=== PATIENT | female | born 1945 | race Caucasian/White ===

== ENCOUNTER 2020-12-04 22:39 | Emergency (ER) | payer MEDICARE, SELFPAY ==
[2020-12-04 22:40] VITALS: BP 223/102; PULSE 87; RESP 16; TEMP 36.1; O2SAT 98; BMI 38.2
[2020-12-04 22:50] VITALS: BP 237/92
--- NOTE | 2020-12-04 23:05 | EX.ED.UPPERE ---
HPI History of Present Illness Chief Complaint: Upper Extremity Injury Informant: patient Occured/Mechanism Mechanism/Context: Yes fall and Yes same level fall Narrative Narrative: Patient is a 75-year-old female presenting from home after mechanical fall. Patient tripped over her suitcase when she was trying to use the restroom and she fell on her right arm. She is right-hand dominant. She had immediate pain. She had her place her in a homemade sling. She came right to the emergency room. She denies associated numbness or tingling. She not hit her head. She denies any loss of consciousness. She is not on any anticoagulation. No other complaints or injuries reported at this time. PFSH PFSH no medical history Home Medications hydrocodone-acetaminophen 1 tab PO Q6H PRN 3 Days #12 tab 12/05/20 [Rx Last Taken Unknown] Allergy/AdvReac Type Severity Reaction Status Date / Time strawberry Allergy Hives Verified 12/04/20 22:42 no significant family history Surgical History History of cholecystectomy Social History Smoking Status: Never smoker ROS ROS ED Constitutional Constitutional ED: Reports frequent falls; Denies fever(s) Eyes Eyes: Denies change in vision or eye pain ENT ENT ED: Denies dental pain, mouth lesions or nasal trauma Cardiovascular Cardiovascular: Denies chest pain or syncope Respiratory/Chest Respiratory/Chest: Denies cough or dyspnea Gastrointestinal Gastrointestinal: Denies abdominal pain or nausea Genitourinary Genitourinary ED: Denies dysuria or hematuria Musculoskeletal Musculoskeletal: Reports other Details: Right arm pain ; Denies back pain or myalgias Integumentary Denies Abrasions or wounds Neurologic Neurologic: Denies headache(s), paresthesias or weakness Psychiatric Psychiatric: Denies anxiety or depression Hematologic/Lymphatic Hematologic/Lymphatic: Denies easy bleeding or easy bruising EXAM Physical Exam Const Vital Signs: 12/04/20 22:40 12/04/20 22:50 Temperature 97 F L Temperature Source Temporal Pulse Rate 87 Respiratory Rate 16 Blood Pressure 223/102 H 237/92 H Blood Pressure Mean 142 140 Pulse Ox 98 Oxygen Delivery Method Room Air Positive well nourished and well developed General Appearance ED: well developed HEENT Reports head/scalp atraumatic and hearing grossly normal bilaterally normocephalic and atraumatic; Negative for Pacheco's sign, raccoon eyes or scalp tenderness Nose: no nasal discharge Mouth ED: Yes other Mouth: other Other Details: No Malocclusion Eyes PERRL Neck full ROM Thyroid: Negative for tender Chest Wall inspection of chest normal and palpation of chest normal Chest: Negative for crepitus Resp normal respiratory effort, no retractions and clear to auscultation bilaterally Cardio regular rate and regular rhythm Jugular Venous Distention: Negative for JVD Peripheral Pulses: pulses 2+ throughout GI non-tender and non-distended Palpation: soft; Negative for guarding or rebound tenderness present Back/Spine Cervical Spine: Negative for cervical spine tenderness Extremity Extremity Narrative: Patient is holding her right arm flexed at the elbow. She has tenderness palpation at the radial head and distal humerus. Pain with supination pronation of the forearm as well as flexion extension of the elbow. No obvious deformity appreciated. No tenderness or deformity of the wrist. No tenderness to palpation of the shoulder. Clavicle is nontender with no deformity. Right Upper Extremity: clavicle Neuro oriented x3, moves all extremities and no sensory deficits noted Sensorium / Orientation: alert Motor Exam: strength 5/5 throughout Psych mental status grossly normal Skin no wounds Trauma: Negative for abrasion MDM MDM MDM Narrative Medical decision making narrative: Patient mechanical fall. She has pain of the right upper arm. No obvious deformity. She is neurovascularly intact. She is given IM morphine in the ER. She does have mild improvement of her symptoms. X-ray shows a right proximal humerus fracture. X-ray interpreted by myself as well as radiology. Patient will be given follow-up with Dr. Huynh, orthopedics and placed in a sling. She is counseled on return precautions. She verbalized agreement understanding this plan. Discharged home in stable condition. Radiography Diagnostic Testing: Right humerus?proximal humerus fracture Right elbow?no acute fracture Treatment and Re-Evaluation Comments:: Morphine. X-ray shows proximal humerus fracture. Patient placed in sling. Given [place] p.o. and prescription for [place] at home. Instructed to use stool softener while taking [place] to prevent opioid-induced constipation. Discharge Plan Triage Chief Complaint: Upper Extremity Injury ED Provider: Rosibel England Dx/Rx/DC Orders Clinical Impression: Closed fracture of proximal end of right humerus Instructions: ED Fracture, Upper Extremity Prescriptions: New hydrocodone-acetaminophen 5-325 mg tablet 1 tab PO Q6H PRN (Reason: pain) 3 Days Qty: 12 RF: 0 Primary Care Provider: Emil Dunlap NP Referrals: Wayne Huynh MD [STAFF PHYSICIAN] - Emil Dunlap [employer], [employer] [Primary Care Provider] - Disposition Disposition: Home, self care Discharge Date/Time: 12/05/20 00:42
[2020-12-04] MEDS: Morphine 4 MG/ML Syringe IM (23:15)
--- NOTE | 2020-12-04 23:30 | RAD_ITS ---
HISTORY: Injury/Pain ADDITIONAL HISTORY: None provided. EXAMINATION/TECHNIQUE: XR Elbow Min 3 Views Right Number of images including paperwork: 3 COMPARISON: None FINDINGS: BONES: No acute fracture. Olecranon enthesophyte. Enthesopathic changes around the epicondyles. JOINTS: No subluxation. SOFT TISSUES: No distinct foreign body. RAD/Elbow min 3 Views IMPRESSION: No acute osseous abnormality. at 2358 Reported and signed by: Nara Mills MD Electronically Signed: Nara Mills MD at 23:57 EDT Tel , Service support ,
--- NOTE | 2020-12-04 23:30 | RAD_ITS ---
HISTORY: Injury/Pain ADDITIONAL HISTORY: None provided. EXAMINATION/TECHNIQUE: XR Humerus Min 2 Views Right Number of images including paperwork: 4 COMPARISON: None FINDINGS: BONES: Mildly comminuted fracture of the humeral head and neck is present with some impaction and displacement measuring up to 8 mm. Fracture may involve the greater tuberosity. Mineralization appears decreased. JOINTS: No subluxation. SOFT TISSUES: No distinct foreign body. RAD/Humerus min 2 Views IMPRESSION: Right proximal humerus fracture. at 2359 Reported and signed by: Nara Mills MD Electronically Signed: Nara Mills MD at 23:59 EDT Tel , Service support ,
[2020-12-05] MEDS: HYDROcodone Bitartrate/Apap 5/325 Tablet PO (00:34)
[2020-12-05 00:36] VITALS: BP 183/86
== END 2020-12-05 00:42 | disposition home or self-care (01) ==
PROVIDERS: Emergency Provider Emergency Medicine; PCP Nurse Practitioner Family
DX: S42.291A Other displaced fracture of upper end of right humerus, initial encounter for closed fracture (principal); W18.09XA Striking against other object with subsequent fall, initial encounter; Y93.9 Activity, unspecified; Y92.9 Unspecified place or not applicable; Y99.9 Unspecified external cause status
CPT/HCPCS: 73060; 73080; 96372; 99283